=== PATIENT | male | born 1995 | race African-American/Black ===

== ENCOUNTER 2018-05-01 06:42 | Emergency (ER) | payer BC ==
[2018-05-01] MEDS ORDERED: Ibuprofen 800 MG TAB ONE (07:57)
[2018-05-01] MEDS ORDERED: Bacitracin Zinc 1 Packet ONE (08:22)
--- NOTE | 2018-05-01 08:48 | RAD ---
RADIOGRAPH LEFT TOES 3 VIEWS: HISTORY: A 22-year-old male status post blunt trauma to left toes. FINDINGS: No fracture is identified, but typed words overlie and partially obscure the 1st and 2nd distal phala nges. No dislocation. IMPRESSION: No fracture identified. POS: [facility]
== END 2018-05-01 08:29 | disposition home or self-care (01) ==
LOC: ERS 06:42
DX: S91.205A Unspecified open wound of left lesser toe(s) with damage to nail, initial encounter (principal); W22.8XXA Striking against or struck by other objects, initial encounter